=== PATIENT | female | born 1935 | race Caucasian/White ===

== ENCOUNTER 2020-05-16 12:25 | Inpatient (IN) | payer MEDICARE, OTHER ==
[~2020-05-16] VITALS: Ht 160 cm; Wt 47.7 kg
[2020-05-16 13:19] LABS: BASOPHILS % (AUTO) 0.6 % (0-1); EOSINOPHILS # (AUTO) 0.1 X10'3 (0-0.9); EOSINOPHILS % (AUTO) 1.6 % (0-6); HEMATOCRIT 36.6 % (35.0-45.0); HEMOGLOBIN 12.4 g/dl (12.0-16.0); LYMPHOCYTES # (AUTO) 0.9 X10'3 (1.1-4.8); LYMPHOCYTES % (AUTO) 20.4 % (21-51); MEAN CORPUSCULAR HEMOGLOBIN 29.4 PG (27.0-31.0); MEAN CORPUSCULAR HGB CONC 33.8 g/dL (33.0-36.5); MEAN PLATELET VOLUME 6.9 FL (7.4-10.4); MONOCYTES # (AUTO) 0.2 X10'3 (0-0.9); MONOCYTES % (AUTO) 4.6 % (2-12); NEUTROPHILS # (AUTO) 3.2 X10'3 (1.8-7.7); NEUTROPHILS % (AUTO) 72.8 % (42-75); PLATELET COUNT 116 X10'3 (140-440); RED BLOOD COUNT 4.21 X10'6 (4.20-5.60); RED CELL DISTRIBUTION WIDTH 13.5 % (11.5-14.5); WHITE BLOOD COUNT 4.4 X10'3 (4.5-11.0)
[2020-05-16] MEDS ORDERED: iohexol 300mg/ml 100ml inj. ONE (13:26)
[2020-05-16 13:35] LABS: ALANINE AMINOTRANSFERASE 24 U/L (12-78); ALBUMIN 4.3 G/DL (3.4-5.0); ALBUMIN/GLOBULIN RATIO 2.4 (1.1-1.5); ALKALINE PHOSPHATASE 58 IU/L (46-116); ANION GAP 8 (8-16); ASPARTATE AMINO TRANSFERASE 22 U/L (10-37); BILIRUBIN,TOTAL 0.7 MG/DL (0.1-1.0); BLOOD UREA NITROGEN 15 MG/DL (7-18); BUN/CREATININE RATIO 23.4 (6.6-38.0); CALCIUM 8.6 MG/DL (8.5-10.1); CHLORIDE 99 MMOL/L (99-107); CREATININE 0.64 MG/DL (0.40-0.90); GLUCOSE 99 MG/DL (70-104); POTASSIUM 3.6 MMOL/L (3.5-5.1); SODIUM 135 MMOL/L (135-145); TOTAL CARBON DIOXIDE 27.6 MMOL/L (24-32); TOTAL PROTEIN 6.1 G/DL (6.4-8.2); eGFR 88 ML/MIN
--- NOTE | 2020-05-16 14:01 | NUR ---
PATIENT REFUSED TO GO TO CT SCAN DESPITE MULTIPLE ATTEMPTS AT EXPLAINING THE PROCEEDURE AND RISKS OF NOT GOING TO CT SCAN
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
[2020-05-16] MEDS ORDERED: ondansetron/PF 4mg/2ml inj IV PRN (19:20)
[2020-05-16] MEDS ORDERED: magnesium hydroxide 30ml (MOM) UD suspension PO PRN (19:20)
[2020-05-16] MEDS ORDERED: acetaminophen 325mg tablet PO PRN (19:20)
[2020-05-16] MEDS ORDERED: mag hydrox/Alum hydrox/simeth 30ml oral suspension PO PRN (19:20)
[2020-05-16] MEDS: heparin, porcine 5000 units/ml vial SQ SCH (20:00)
[2020-05-16 21:20] VITALS: BP 111/52
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
[2020-05-16] MEDS: HYDROcodone/acetaminophen 5mg/325mg tablet PO PRN (23:33)
[2020-05-17] VITALS: BP 95/48
[2020-05-17] MEDS ORDERED: HYDROcodone/acetaminophen 5mg/325mg tablet PO ONE (02:15)
[2020-05-17 06:00] LABS: BASOPHILS % (AUTO) 1.2 % (0-1); EOSINOPHILS # (AUTO) 0.1 X10'3 (0-0.9); EOSINOPHILS % (AUTO) 2.9 % (0-6); HEMATOCRIT 29.3 % (35.0-45.0); LYMPHOCYTES # (AUTO) 0.9 X10'3 (1.1-4.8); LYMPHOCYTES % (AUTO) 22.5 % (21-51); MEAN CORPUSCULAR HEMOGLOBIN 29.8 PG (27.0-31.0); MEAN CORPUSCULAR HGB CONC 34.3 g/dL (33.0-36.5); MEAN CORPUSCULAR VOLUME 86.9 FL (78-98); MONOCYTES # (AUTO) 0.2 X10'3 (0-0.9); MONOCYTES % (AUTO) 5.6 % (2-12); NEUTROPHILS # (AUTO) 2.6 X10'3 (1.8-7.7); NEUTROPHILS % (AUTO) 67.8 % (42-75); PLATELET COUNT 89 X10'3 (140-440); RED BLOOD COUNT 3.37 X10'6 (4.20-5.60); RED CELL DISTRIBUTION WIDTH 13.4 % (11.5-14.5); WHITE BLOOD COUNT 3.8 X10'3 (4.5-11.0)
[2020-05-17 06:15] LABS: ALANINE AMINOTRANSFERASE 25 U/L (12-78); ALBUMIN 3.3 G/DL (3.4-5.0); ALBUMIN/GLOBULIN RATIO 2.1 (1.1-1.5); ALKALINE PHOSPHATASE 48 IU/L (46-116); ANION GAP 7 (8-16); ASPARTATE AMINO TRANSFERASE 30 U/L (10-37); BILIRUBIN,TOTAL 0.7 MG/DL (0.1-1.0); BLOOD UREA NITROGEN 15 MG/DL (7-18); CALCIUM 8.2 MG/DL (8.5-10.1); CHLORIDE 106 MMOL/L (99-107); CREATININE 0.75 MG/DL (0.40-0.90); GLUCOSE 83 MG/DL (70-104); POTASSIUM 3.8 MMOL/L (3.5-5.1); SODIUM 141 MMOL/L (135-145); TOTAL CARBON DIOXIDE 27.9 MMOL/L (24-32); TOTAL PROTEIN 4.9 G/DL (6.4-8.2); eGFR 74 ML/MIN
--- NOTE | 2020-05-17 06:15 | NUR ---
Problems reprioritized. Patient report given, questions answered & plan of care reviewed with ALICIA Kingsley.
[2020-05-17] MEDS: HYDROcodone/acetaminophen 5mg/325mg tablet PO PRN ×3 (06:18→21:05)
--- NOTE | 2020-05-17 06:51 | NUR ---
Patient in room [facility]. I have received report from CINDY VARGAS and had the opportunity to ask questions and assume patient care.
[2020-05-17 07:00] VITALS: BP 100/55
[2020-05-17] MEDS: heparin, porcine 5000 units/ml vial SQ SCH ×2 (07:11→20:00)
[2020-05-17 11:00] VITALS: BP 113/57
[2020-05-17] MEDS ORDERED: NO HOME MEDS (12:18)
--- NOTE | 2020-05-17 14:03 | NUR ---
Noted that pt with a low BMI for geriatric age however current documented wt isn't scaled. Pt seen at bedside reports unsure of UBW. Pt appears small in stature. Pt on a regular diet, pending documentation of PO intake. Pt endorses a good appetite and reports 100% PO intake of breakfast and lunch today and states she is getting full from meals at this time. Pt denies food allergies or difficulty chewing/swallowing. Pt provided with alternative regular menu to provide additional food options and RD contact information. Pt with no food preferences at this time. Will remain available. Addendum: 05/17/20 at [address] Amended: Links added.
--- NOTE | 2020-05-17 18:45 | NUR ---
Patient in room [facility]. I have received report from ALICIA Kingsley and had the opportunity to ask questions and assume patient care.
[2020-05-17 20:29] VITALS: BP 144/53
--- NOTE | 2020-05-17 23:34 | NUR ---
Patient refusing midnight vitals
--- NOTE | 2020-05-18 06:27 | NUR ---
Patient in room [facility]. I have received report from ALICIA Shah and had the opportunity to ask questions and assume patient care.
--- NOTE | 2020-05-18 06:30 | NUR ---
Problems reprioritized. Patient report given, questions answered & plan of care reviewed with Nhi VARGAS.
[2020-05-18 07:00] VITALS: BP 98/80
[2020-05-18 07:43] LABS: BASOPHILS % (AUTO) 0.7 % (0-1); EOSINOPHILS # (AUTO) 0.1 X10'3 (0-0.9); EOSINOPHILS % (AUTO) 3.3 % (0-6); HEMATOCRIT 29.7 % (35.0-45.0); HEMOGLOBIN 10.2 g/dl (12.0-16.0); LYMPHOCYTES # (AUTO) 0.9 X10'3 (1.1-4.8); LYMPHOCYTES % (AUTO) 27.2 % (21-51); MEAN CORPUSCULAR HEMOGLOBIN 29.9 PG (27.0-31.0); MEAN CORPUSCULAR HGB CONC 34.5 g/dL (33.0-36.5); MEAN CORPUSCULAR VOLUME 86.6 FL (78-98); MEAN PLATELET VOLUME 7.2 FL (7.4-10.4); MONOCYTES # (AUTO) 0.2 X10'3 (0-0.9); MONOCYTES % (AUTO) 7.2 % (2-12); NEUTROPHILS % (AUTO) 61.6 % (42-75); PLATELET COUNT 82 X10'3 (140-440); RED BLOOD COUNT 3.43 X10'6 (4.20-5.60); RED CELL DISTRIBUTION WIDTH 13.5 % (11.5-14.5); WHITE BLOOD COUNT 3.3 X10'3 (4.5-11.0)
[2020-05-18] MEDS: heparin, porcine 5000 units/ml vial SQ SCH ×2 (08:00→20:00)
[2020-05-18 08:02] LABS: ALANINE AMINOTRANSFERASE 28 U/L (12-78); ALBUMIN 3.4 G/DL (3.4-5.0); ALBUMIN/GLOBULIN RATIO 1.9 (1.1-1.5); ALKALINE PHOSPHATASE 49 IU/L (46-116); ANION GAP 8 (8-16); ASPARTATE AMINO TRANSFERASE 30 U/L (10-37); BILIRUBIN,TOTAL 0.5 MG/DL (0.1-1.0); BLOOD UREA NITROGEN 11 MG/DL (7-18); BUN/CREATININE RATIO 19.3 (6.6-38.0); CALCIUM 9.1 MG/DL (8.5-10.1); CHLORIDE 106 MMOL/L (99-107); CREATININE 0.57 MG/DL (0.40-0.90); GLUCOSE 92 MG/DL (70-104); SODIUM 140 MMOL/L (135-145); TOTAL CARBON DIOXIDE 26.2 MMOL/L (24-32); TOTAL PROTEIN 5.2 G/DL (6.4-8.2); eGFR > 90 ML/MIN
[2020-05-18 11:00] VITALS: BP 152/57
--- NOTE | 2020-05-18 18:49 | NUR ---
Problems reprioritized. Patient report given, questions answered & plan of care reviewed with ALICIA Ramon.
[2020-05-18 20:00] VITALS: BP 115/54
--- NOTE | 2020-05-19 02:57 | NUR ---
REPORT RECEIVED FROM HYUN, PLAN OF CARE REVIEWED. NO ACUTE DISTRESS AT THIS TIME
[2020-05-19 04:42] VITALS: BP 102/49
--- NOTE | 2020-05-19 06:24 | NUR ---
Patient in room [facility]. I have received report from ALICIA Ramon and had the opportunity to ask questions and assume patient care.
[2020-05-19 07:00] VITALS: BP 119/58
[2020-05-19 07:20] LABS: EOSINOPHILS # (AUTO) 0.1 X10'3 (0-0.9); HEMOGLOBIN 10.3 g/dl (12.0-16.0); LYMPHOCYTES % (AUTO) 26.7 % (21-51); MEAN CORPUSCULAR HGB CONC 34.3 g/dL (33.0-36.5); MEAN CORPUSCULAR VOLUME 87.4 FL (78-98); MEAN PLATELET VOLUME 7.4 FL (7.4-10.4); MONOCYTES # (AUTO) 0.3 X10'3 (0-0.9); MONOCYTES % (AUTO) 7.1 % (2-12); NEUTROPHILS # (AUTO) 2.3 X10'3 (1.8-7.7); NEUTROPHILS % (AUTO) 62.2 % (42-75); PLATELET COUNT 84 X10'3 (140-440); RED BLOOD COUNT 3.43 X10'6 (4.20-5.60); RED CELL DISTRIBUTION WIDTH 13.8 % (11.5-14.5); WHITE BLOOD COUNT 3.6 X10'3 (4.5-11.0)
[2020-05-19 07:41] LABS: ALANINE AMINOTRANSFERASE 26 U/L (12-78); ALBUMIN 3.4 G/DL (3.4-5.0); ALBUMIN/GLOBULIN RATIO 1.7 (1.1-1.5); ALKALINE PHOSPHATASE 52 IU/L (46-116); ANION GAP 7 (8-16); ASPARTATE AMINO TRANSFERASE 24 U/L (10-37); BILIRUBIN,TOTAL 0.5 MG/DL (0.1-1.0); BLOOD UREA NITROGEN 13 MG/DL (7-18); BUN/CREATININE RATIO 22.4 (6.6-38.0); CALCIUM 8.2 MG/DL (8.5-10.1); CHLORIDE 107 MMOL/L (99-107); CREATININE 0.58 MG/DL (0.40-0.90); GLUCOSE 90 MG/DL (70-104); SODIUM 140 MMOL/L (135-145); TOTAL CARBON DIOXIDE 26.1 MMOL/L (24-32); TOTAL PROTEIN 5.4 G/DL (6.4-8.2); eGFR > 90 ML/MIN
[2020-05-19] MEDS: heparin, porcine 5000 units/ml vial SQ SCH ×2 (08:00→20:00)
[2020-05-19 11:00] VITALS: BP 128/55
--- NOTE | 2020-05-19 18:27 | NUR ---
Problems reprioritized. Patient report given, questions answered & plan of care reviewed with ALICIA Powers.
--- NOTE | 2020-05-19 18:32 | NUR ---
Patient in room [facility]. I have received report from RUBA VARGAS and had the opportunity to ask questions and assume patient care. Addendum: 05/19/20 at 1833 by Priya Helms RN Amended: Links added.
--- NOTE | 2020-05-19 19:35 | NUR ---
warm blanket given positioned to comfort.
[2020-05-19 19:45] VITALS: BP 131/53
--- NOTE | 2020-05-19 22:26 | NUR ---
resting appears comfortable at this time.
--- NOTE | 2020-05-19 22:55 | NUR ---
refused her second set of vitals.
--- NOTE | 2020-05-20 00:05 | NUR ---
refused vitals. Addendum: 05/20/20 at 0203 by Priya Helms RN Amended: Links added.
--- NOTE | 2020-05-20 00:36 | NUR ---
resting without changes.
--- NOTE | 2020-05-20 02:30 | NUR ---
resting no changes.
--- NOTE | 2020-05-20 06:16 | NUR ---
Problems reprioritized. Patient report given, questions answered & plan of care reviewed with Tracey Garcia. Addendum: 05/20/20 at 0617 by Priya Helms RN Amended: Links added.
[2020-05-20 06:28] LABS: EOSINOPHILS # (AUTO) 0.1 X10'3 (0-0.9); EOSINOPHILS % (AUTO) 4.1 % (0-6); HEMATOCRIT 29.8 % (35.0-45.0); HEMOGLOBIN 10.5 g/dl (12.0-16.0); LYMPHOCYTES # (AUTO) 0.8 X10'3 (1.1-4.8); LYMPHOCYTES % (AUTO) 23.3 % (21-51); MEAN CORPUSCULAR HEMOGLOBIN 30.4 PG (27.0-31.0); MEAN CORPUSCULAR HGB CONC 35.2 g/dL (33.0-36.5); MEAN CORPUSCULAR VOLUME 86.3 FL (78-98); MEAN PLATELET VOLUME 7.6 FL (7.4-10.4); MONOCYTES # (AUTO) 0.2 X10'3 (0-0.9); MONOCYTES % (AUTO) 6.9 % (2-12); NEUTROPHILS # (AUTO) 2.3 X10'3 (1.8-7.7); NEUTROPHILS % (AUTO) 64.7 % (42-75); PLATELET COUNT 95 X10'3 (140-440); RED BLOOD COUNT 3.45 X10'6 (4.20-5.60); WHITE BLOOD COUNT 3.5 X10'3 (4.5-11.0)
[2020-05-20 06:32] LABS: ALANINE AMINOTRANSFERASE 26 U/L (12-78); ALBUMIN 3.4 G/DL (3.4-5.0); ALBUMIN/GLOBULIN RATIO 1.7 (1.1-1.5); ALKALINE PHOSPHATASE 49 IU/L (46-116); ASPARTATE AMINO TRANSFERASE 20 U/L (10-37); BILIRUBIN,TOTAL 0.5 MG/DL (0.1-1.0); BLOOD UREA NITROGEN 18 MG/DL (7-18); BUN/CREATININE RATIO 26.9 (6.6-38.0); CALCIUM 8.6 MG/DL (8.5-10.1); CREATININE 0.67 MG/DL (0.40-0.90); GLUCOSE 101 MG/DL (70-104); TOTAL PROTEIN 5.4 G/DL (6.4-8.2); eGFR 84 ML/MIN
[2020-05-20 06:38] LABS: ANION GAP 6 (8-16); CHLORIDE 104 MMOL/L (99-107); POTASSIUM 4.1 MMOL/L (3.5-5.1); SODIUM 136 MMOL/L (135-145)
--- NOTE | 2020-05-20 07:28 | NUR ---
Pt. refused VS to be taken. Educated on importance of needing to monitor vitals signs but pt. still refused.
[2020-05-20] MEDS: heparin, porcine 5000 units/ml vial SQ SCH ×2 (08:00→20:00)
--- NOTE | 2020-05-20 09:51 | NUR ---
notified that pt. is refusing vitals and that she wants her IV taken out. He is ok with no IV. Also notified of low platelets and that heparin had been held this AM. ok with this.
[2020-05-20 11:00] VITALS: BP 115/67
--- NOTE | 2020-05-20 18:17 | NUR ---
Gave report to Priya VARGAS.
--- NOTE | 2020-05-20 18:28 | NUR ---
Patient in room [facility]. I have received report from PIO VARGAS and had the opportunity to ask questions and assume patient care. Addendum: 05/20/20 at 1828 by Priya Helms RN Amended: Links added.
[2020-05-20 19:00] VITALS: BP 127/66
--- NOTE | 2020-05-20 19:25 | NUR ---
pt alert and orientated with expressive asphasia. pt has hARD TIME USING THE RIGHT WORDS AT FIRST THEN finally gets it and uses it. she is able to answer questions appropriately and says she does not want or need pain medication and refused heparin dvt dose tonight.
[2020-05-20 20:00] VITALS: BP 127/66
--- NOTE | 2020-05-20 22:05 | NUR ---
pt resting without changes or s&s of distress.
[2020-05-21] VITALS: BP 139/94
--- NOTE | 2020-05-21 00:53 | NUR ---
no changes noted appears comfortable.
--- NOTE | 2020-05-21 03:13 | NUR ---
awake stated she was cold blanket given to her. denies need for pain medication.
--- NOTE | 2020-05-21 04:25 | NUR ---
resting no changes.
--- NOTE | 2020-05-21 06:08 | NUR ---
Problems reprioritized. Patient report given, questions answered & plan of care reviewed with PIO VARGAS. Addendum: 05/21/20 at 0609 by Priya Helms RN Amended: Links added.
[2020-05-21 08:26] VITALS: BP 107/52
[2020-05-21 09:04] LABS: EOSINOPHILS # (AUTO) 0.1 X10'3 (0-0.9); EOSINOPHILS % (AUTO) 3.8 % (0-6); HEMATOCRIT 34.2 % (35.0-45.0); HEMOGLOBIN 11.5 g/dl (12.0-16.0); LYMPHOCYTES # (AUTO) 0.8 X10'3 (1.1-4.8); LYMPHOCYTES % (AUTO) 21.8 % (21-51); MEAN CORPUSCULAR HEMOGLOBIN 29.6 PG (27.0-31.0); MEAN CORPUSCULAR HGB CONC 33.7 g/dL (33.0-36.5); MEAN CORPUSCULAR VOLUME 87.9 FL (78-98); MEAN PLATELET VOLUME 7.3 FL (7.4-10.4); MONOCYTES # (AUTO) 0.2 X10'3 (0-0.9); MONOCYTES % (AUTO) 6.2 % (2-12); NEUTROPHILS # (AUTO) 2.4 X10'3 (1.8-7.7); NEUTROPHILS % (AUTO) 67.2 % (42-75); PLATELET COUNT 136 X10'3 (140-440); RED BLOOD COUNT 3.89 X10'6 (4.20-5.60); RED CELL DISTRIBUTION WIDTH 14.1 % (11.5-14.5); WHITE BLOOD COUNT 3.5 X10'3 (4.5-11.0)
[2020-05-21 09:28] LABS: ALANINE AMINOTRANSFERASE 29 U/L (12-78); ALBUMIN 3.6 G/DL (3.4-5.0); ALBUMIN/GLOBULIN RATIO 1.6 (1.1-1.5); ALKALINE PHOSPHATASE 61 IU/L (46-116); ANION GAP 7 (8-16); ASPARTATE AMINO TRANSFERASE 18 U/L (10-37); BILIRUBIN,TOTAL 0.7 MG/DL (0.1-1.0); BLOOD UREA NITROGEN 14 MG/DL (7-18); BUN/CREATININE RATIO 23.7 (6.6-38.0); CALCIUM 8.4 MG/DL (8.5-10.1); CHLORIDE 101 MMOL/L (99-107); CREATININE 0.59 MG/DL (0.40-0.90); GLUCOSE 130 MG/DL (70-104); SODIUM 136 MMOL/L (135-145); TOTAL CARBON DIOXIDE 27.6 MMOL/L (24-32); TOTAL PROTEIN 5.9 G/DL (6.4-8.2); eGFR > 90 ML/MIN
[2020-05-21 11:00] VITALS: BP 118/49
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
--- NOTE | 2020-05-21 18:33 | NUR ---
Gave report to Shea VARGAS.
--- NOTE | 2020-05-21 18:45 | NUR ---
I have received report from Tracey VARGAS and had the opportunity to ask questions and assume patient care.
[2020-05-21 19:00] VITALS: BP 116/60
[2020-05-21 20:00] VITALS: BP 116/60
[2020-05-22] VITALS: BP 111/56
--- NOTE | 2020-05-22 06:15 | NUR ---
Problems reprioritized. Patient report given, questions answered & plan of care reviewed with Talya VARGAS.
--- NOTE | 2020-05-22 06:43 | NUR ---
Patient in room [facility]. I have received report from Shea and had the opportunity to ask questions and assume patient care.
[2020-05-22 07:00] VITALS: BP 118/60
--- NOTE | 2020-05-22 18:34 | NUR ---
I have received report from Talya VARGAS and had the opportunity to ask questions and assume patient care.
--- NOTE | 2020-05-22 20:50 | NUR ---
Patient in room [facility]. I have received report from ALICIA Valdivia and had the opportunity to ask questions and assume patient care.
[2020-05-22 20:54] VITALS: BP 112/48
--- NOTE | 2020-05-22 22:02 | NUR ---
Problems reprioritized. Patient report given, questions answered & plan of care reviewed with Coretta VARGAS.
[2020-05-23 00:04] VITALS: BP 109/55
--- NOTE | 2020-05-23 06:23 | NUR ---
Problems reprioritized. Patient report given, questions answered & plan of care reviewed with ALICIA Alcala.
[2020-05-23 07:00] VITALS: BP 115/66
--- NOTE | 2020-05-23 15:58 | NUR ---
I have received report from Andreina VARGAS and had the opportunity to ask questions and assume patient care.
[2020-05-23 19:42] VITALS: BP 117/56
[2020-05-24] VITALS: BP 110/60
--- NOTE | 2020-05-24 06:31 | NUR ---
Problems reprioritized. Patient report given, questions answered & plan of care reviewed with Esther VARGAS.
--- NOTE | 2020-05-24 06:33 | NUR ---
Patient in room [facility]. I have received report from Shea VARGAS and had the opportunity to ask questions and assume patient care.
[2020-05-24 08:00] VITALS: BP 128/60
[2020-05-24 11:00] VITALS: BP 119/50
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
--- NOTE | 2020-05-24 15:36 | NUR ---
PAGER ID: [phone] MESSAGE: re: KeraB, Collette Padilla Pt's brother, Royce Yap ([phone]) would like to speak with you regarding pt's status (Pratibha in [employer] is also aware).
[2020-05-24 18:00] VITALS: BP 130/66
--- NOTE | 2020-05-24 18:49 | NUR ---
Patient in room [facility]. I have received report from ALICIA Santana and had the opportunity to ask questions and assume patient care.
--- NOTE | 2020-05-24 18:50 | NUR ---
Problems reprioritized. Patient report given, questions answered & plan of care reviewed with Perry VARGAS.
[2020-05-24] MEDS ORDERED: potassium Cl 40MEQ/1/2NS 520ml 520 ML IV PRN (18:55)
[2020-05-24] MEDS ORDERED: magnesium Cl slow-release 64mg tablet PO PRN (18:55)
[2020-05-24] MEDS ORDERED: magnesium 4gm in 100ml NS 100 ML IV PRN (18:55)
[2020-05-24] MEDS ORDERED: potassium Cl 20 mEq SR tablet PO PRN ×2 (18:55)
[2020-05-24] MEDS: K and/or MAG REPLACEMENT MC SCH (20:00)
[2020-05-25] VITALS: BP 108/64
--- NOTE | 2020-05-25 06:23 | NUR ---
Problems reprioritized. Patient report given, questions answered & plan of care reviewed with ALICIA Zavala.
[2020-05-25 07:00] VITALS: BP 117/58
[2020-05-25 07:07] LABS: BASOPHILS % (AUTO) 1.1 % (0-1); EOSINOPHILS # (AUTO) 0.1 X10'3 (0-0.9); EOSINOPHILS % (AUTO) 3.2 % (0-6); HEMATOCRIT 31.3 % (35.0-45.0); HEMOGLOBIN 10.7 g/dl (12.0-16.0); LYMPHOCYTES # (AUTO) 0.9 X10'3 (1.1-4.8); MEAN CORPUSCULAR HEMOGLOBIN 29.6 PG (27.0-31.0); MEAN CORPUSCULAR HGB CONC 34.3 g/dL (33.0-36.5); MEAN CORPUSCULAR VOLUME 86.4 FL (78-98); MEAN PLATELET VOLUME 6.8 FL (7.4-10.4); MONOCYTES # (AUTO) 0.3 X10'3 (0-0.9); MONOCYTES % (AUTO) 8.4 % (2-12); NEUTROPHILS # (AUTO) 2.1 X10'3 (1.8-7.7); NEUTROPHILS % (AUTO) 61.3 % (42-75); PLATELET COUNT 176 X10'3 (140-440); RED BLOOD COUNT 3.63 X10'6 (4.20-5.60); RED CELL DISTRIBUTION WIDTH 13.8 % (11.5-14.5); WHITE BLOOD COUNT 3.4 X10'3 (4.5-11.0)
[2020-05-25 07:17] LABS: ALANINE AMINOTRANSFERASE 24 U/L (12-78); ALBUMIN 3.2 G/DL (3.4-5.0); ALBUMIN/GLOBULIN RATIO 1.5 (1.1-1.5); ALKALINE PHOSPHATASE 67 IU/L (46-116); ANION GAP 6 (8-16); ASPARTATE AMINO TRANSFERASE 10 U/L (10-37); BILIRUBIN,TOTAL 0.5 MG/DL (0.1-1.0); BLOOD UREA NITROGEN 18 MG/DL (7-18); BUN/CREATININE RATIO 32.7 (6.6-38.0); CALCIUM 8.4 MG/DL (8.5-10.1); CHLORIDE 105 MMOL/L (99-107); CREATININE 0.55 MG/DL (0.40-0.90); GLUCOSE 96 MG/DL (70-104); MAGNESIUM 2.2 MG/DL (1.5-2.4); PHOSPHORUS 3.7 MG/DL (2.3-4.5); POTASSIUM 4.3 MMOL/L (3.5-5.1); SODIUM 138 MMOL/L (135-145); TOTAL CARBON DIOXIDE 27.1 MMOL/L (24-32); TOTAL PROTEIN 5.4 G/DL (6.4-8.2); eGFR > 90 ML/MIN
[2020-05-25] MEDS: K and/or MAG REPLACEMENT MC SCH ×2 (08:00→20:00)
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
--- NOTE | 2020-05-25 09:24 | NUR ---
PAGER ID: [phone] MESSAGE: Sally [phone] nabil Padilla- ok to straight cath for UA? Cannot get a clean sample via void.
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
[2020-05-25 11:00] VITALS: BP 114/59
[2020-05-25] MEDS: ciprofloxacin 0.3% 2.5ml ophthalmic solution RIGHTEYE SCH ×4 (12:00→19:57)
[2020-05-25 12:08] LABS: CLARITY,URINE CLEAR (Clear); COLOR,URINE YELLOW (Yellow); GLUCOSE, URINE NEGATIVE (Neg); KETONES,URINE NEGATIVE (Neg); LEUKOCYTE ESTERASE ,URINE TRACE (Neg); NITRITES, URINE NEGATIVE (Neg); OCCULT BLOOD,URINE NEGATIVE (Neg); PROTEIN,URINE NEGATIVE (Neg); UROBILINOGEN,URINE 0.2 E.U/dL (0.2-1.0)
[2020-05-25 12:14] LABS: UA COLLECTION TYPE NON-SPECIFIED
[2020-05-25 12:16] LABS: RENAL CELLS, URINE FEW /HPF; SQUAMOUS EPITHELIAL CELL,UR FEW /LPF (FEW)
[2020-05-25 12:19] LABS: BACTERIA,URINE NONE SEEN /HPF (Neg); RBC,URINE 0-2 /HPF (0-2); WBC CLUMPS,URINE FEW /HPF (NEGATIVE)
[2020-05-25 12:50] LABS: CHOL/HDL RATIO 1.8 (0.00-4.99); CHOLESTEROL 144 MG/DL (0-200); HDL CHOLESTEROL 79 MG/DL (35-60); LDL CHOLESTEROL 59 MG/DL (50-100); TRIGLYCERIDES 46 MG/DL (20-135)
--- NOTE | 2020-05-25 12:53 | NUR ---
PAGER ID: [phone] MESSAGE: Sally [phone]- Mrs Padilla is adamantly refusing the MRI. States she is claustrophobic yet will not take anti anxiety for it. Insists she will get it done outpatient. Please advise
--- NOTE | 2020-05-25 13:55 | NUR ---
pt refused mri and also refused eye drops. She sat up in the bed and said, "I don't want it!". Addendum: 05/25/20 at 1356 by Shea Chan RN pt states she wants to go home
[2020-05-25 18:00] VITALS: BP 135/95
[2020-05-25] MEDS ORDERED: CefTRIAXone/D5W-Rocephin 1gm 50 ML IV SCH (18:25)
--- NOTE | 2020-05-25 18:46 | NUR ---
PAGER ID: [phone] MESSAGE: Sally [phone] re Collette Padilla- Pt does not have an IV, any chance we could switch the antibiotic to something PO?
[2020-05-25] MEDS: cefpodoxime proxetil 100mg tablet PO SCH (19:55)
[2020-05-25] MEDS: heparin, porcine 5000 units/ml vial SQ SCH (20:00)
[2020-05-26] VITALS: BP 110/51
[2020-05-26] MEDS: ciprofloxacin 0.3% 2.5ml ophthalmic solution RIGHTEYE SCH ×6 (04:00→19:18)
--- NOTE | 2020-05-26 06:23 | NUR ---
Problems reprioritized. Patient report given, questions answered & plan of care reviewed with ALICIA Estrada.
--- NOTE | 2020-05-26 06:29 | NUR ---
Patient in room [facility]. I have received report from ALICIA Amador and had the opportunity to ask questions and assume patient care.
[2020-05-26] MEDS: K and/or MAG REPLACEMENT MC SCH ×2 (07:05→20:00)
[2020-05-26 07:19] VITALS: BP 111/59
[2020-05-26 07:47] LABS: BASOPHILS % (AUTO) 0.8 % (0-1); EOSINOPHILS # (AUTO) 0.1 X10'3 (0-0.9); HEMATOCRIT 33.5 % (35.0-45.0); HEMOGLOBIN 11.6 g/dl (12.0-16.0); LYMPHOCYTES # (AUTO) 1.1 X10'3 (1.1-4.8); MEAN CORPUSCULAR HEMOGLOBIN 30.3 PG (27.0-31.0); MEAN CORPUSCULAR HGB CONC 34.7 g/dL (33.0-36.5); MEAN CORPUSCULAR VOLUME 87.2 FL (78-98); MEAN PLATELET VOLUME 6.8 FL (7.4-10.4); MONOCYTES # (AUTO) 0.3 X10'3 (0-0.9); MONOCYTES % (AUTO) 7.5 % (2-12); NEUTROPHILS # (AUTO) 2.5 X10'3 (1.8-7.7); NEUTROPHILS % (AUTO) 60.7 % (42-75); PLATELET COUNT 200 X10'3 (140-440); RED BLOOD COUNT 3.84 X10'6 (4.20-5.60); RED CELL DISTRIBUTION WIDTH 13.7 % (11.5-14.5); WHITE BLOOD COUNT 4.1 X10'3 (4.5-11.0)
[2020-05-26] MEDS: heparin, porcine 5000 units/ml vial SQ SCH ×2 (08:00→20:00)
[2020-05-26 08:12] LABS: ALANINE AMINOTRANSFERASE 25 U/L (12-78); ALBUMIN 3.4 G/DL (3.4-5.0); ALBUMIN/GLOBULIN RATIO 1.4 (1.1-1.5); ALKALINE PHOSPHATASE 76 IU/L (46-116); ANION GAP 8 (8-16); ASPARTATE AMINO TRANSFERASE 11 U/L (10-37); BILIRUBIN,TOTAL 0.6 MG/DL (0.1-1.0); BLOOD UREA NITROGEN 19 MG/DL (7-18); BUN/CREATININE RATIO 32.8 (6.6-38.0); CALCIUM 8.5 MG/DL (8.5-10.1); CHLORIDE 103 MMOL/L (99-107); CREATININE 0.58 MG/DL (0.40-0.90); GLUCOSE 97 MG/DL (70-104); MAGNESIUM 2.2 MG/DL (1.5-2.4); SODIUM 138 MMOL/L (135-145); TOTAL PROTEIN 5.8 G/DL (6.4-8.2); eGFR > 90 ML/MIN
[2020-05-26 08:31] LABS: HEMOGLOBIN A1C 4.9 % (4.5-6.2)
[2020-05-26] MEDS: aspirin 81mg tablet.DR PO SCH (09:09)
[2020-05-26] MEDS: cefpodoxime proxetil 100mg tablet PO SCH ×2 (09:09→16:36)
[2020-05-26 11:00] VITALS: BP 128/67
--- NOTE | 2020-05-26 15:49 | NUR ---
Patient has refused Echo and Carotid scan today.
--- NOTE | 2020-05-26 18:26 | NUR ---
Problems reprioritized. Patient report given, questions answered & plan of care reviewed with ALICIA Amador.
--- NOTE | 2020-05-26 18:45 | NUR ---
I have received report from ALICIA Estrada and had the opportunity to ask questions and assume patient care.
[2020-05-26 19:00] VITALS: BP 138/68
[2020-05-27] MEDS: ciprofloxacin 0.3% 2.5ml ophthalmic solution RIGHTEYE SCH ×7 (04:00→23:56)
[2020-05-27 05:39] LABS: BASOPHILS % (AUTO) 1.1 % (0-1); EOSINOPHILS # (AUTO) 0.1 X10'3 (0-0.9); EOSINOPHILS % (AUTO) 3.6 % (0-6); HEMATOCRIT 31.4 % (35.0-45.0); HEMOGLOBIN 10.7 g/dl (12.0-16.0); LYMPHOCYTES # (AUTO) 0.7 X10'3 (1.1-4.8); LYMPHOCYTES % (AUTO) 22.6 % (21-51); MEAN CORPUSCULAR HEMOGLOBIN 29.6 PG (27.0-31.0); MEAN CORPUSCULAR HGB CONC 34.1 g/dL (33.0-36.5); MEAN CORPUSCULAR VOLUME 86.8 FL (78-98); MEAN PLATELET VOLUME 6.6 FL (7.4-10.4); MONOCYTES # (AUTO) 0.3 X10'3 (0-0.9); MONOCYTES % (AUTO) 8.9 % (2-12); NEUTROPHILS # (AUTO) 2.1 X10'3 (1.8-7.7); NEUTROPHILS % (AUTO) 63.8 % (42-75); PLATELET COUNT 183 X10'3 (140-440); RED BLOOD COUNT 3.62 X10'6 (4.20-5.60); RED CELL DISTRIBUTION WIDTH 13.8 % (11.5-14.5); WHITE BLOOD COUNT 3.3 X10'3 (4.5-11.0)
[2020-05-27 05:56] LABS: ALANINE AMINOTRANSFERASE 22 U/L (12-78); ALBUMIN 3.2 G/DL (3.4-5.0); ALBUMIN/GLOBULIN RATIO 1.5 (1.1-1.5); ALKALINE PHOSPHATASE 74 IU/L (46-116); ANION GAP 6 (8-16); ASPARTATE AMINO TRANSFERASE 12 U/L (10-37); BILIRUBIN,TOTAL 0.5 MG/DL (0.1-1.0); BLOOD UREA NITROGEN 21 MG/DL (7-18); BUN/CREATININE RATIO 40.4 (6.6-38.0); CALCIUM 8.4 MG/DL (8.5-10.1); CHLORIDE 104 MMOL/L (99-107); CREATININE 0.52 MG/DL (0.40-0.90); GLUCOSE 101 MG/DL (70-104); MAGNESIUM 2.2 MG/DL (1.5-2.4); PHOSPHORUS 3.9 MG/DL (2.3-4.5); POTASSIUM 4.1 MMOL/L (3.5-5.1); SODIUM 138 MMOL/L (135-145); TOTAL CARBON DIOXIDE 28.4 MMOL/L (24-32); TOTAL PROTEIN 5.3 G/DL (6.4-8.2); eGFR > 90 ML/MIN
[2020-05-27 07:00] VITALS: BP 139/60
[2020-05-27] MEDS: heparin, porcine 5000 units/ml vial SQ SCH ×2 (07:54→20:00)
[2020-05-27] MEDS: K and/or MAG REPLACEMENT MC SCH ×2 (07:54→20:00)
[2020-05-27] MEDS: cefpodoxime proxetil 100mg tablet PO SCH ×2 (09:01→16:56)
[2020-05-27] MEDS: aspirin 81mg tablet.DR PO SCH (09:01)
[2020-05-27 11:00] VITALS: BP 107/54
[2020-05-27 18:30] VITALS: BP 119/62
--- NOTE | 2020-05-27 18:32 | NUR ---
Problems reprioritized. Patient report given, questions answered & plan of care reviewed with ALICIA Verdugo.
[2020-05-28] VITALS: BP 110/56
[2020-05-28] MEDS: ciprofloxacin 0.3% 2.5ml ophthalmic solution RIGHTEYE SCH ×5 (03:59→20:35)
--- NOTE | 2020-05-28 06:15 | NUR ---
Patient in room [facility]. I have received report from ALICIA Verdugo and had the opportunity to ask questions and assume patient care.
[2020-05-28 06:30] VITALS: BP 113/58
[2020-05-28 06:50] LABS: BASOPHILS % (AUTO) 1.2 % (0-1); EOSINOPHILS # (AUTO) 0.1 X10'3 (0-0.9); EOSINOPHILS % (AUTO) 3.3 % (0-6); HEMATOCRIT 31.4 % (35.0-45.0); HEMOGLOBIN 10.7 g/dl (12.0-16.0); LYMPHOCYTES # (AUTO) 0.5 X10'3 (1.1-4.8); LYMPHOCYTES % (AUTO) 17.7 % (21-51); MEAN CORPUSCULAR HEMOGLOBIN 29.7 PG (27.0-31.0); MEAN CORPUSCULAR HGB CONC 34.2 g/dL (33.0-36.5); MEAN CORPUSCULAR VOLUME 86.8 FL (78-98); MEAN PLATELET VOLUME 6.8 FL (7.4-10.4); MONOCYTES # (AUTO) 0.3 X10'3 (0-0.9); MONOCYTES % (AUTO) 9.4 % (2-12); NEUTROPHILS # (AUTO) 1.9 X10'3 (1.8-7.7); NEUTROPHILS % (AUTO) 68.4 % (42-75); PLATELET COUNT 185 X10'3 (140-440); RED BLOOD COUNT 3.62 X10'6 (4.20-5.60); RED CELL DISTRIBUTION WIDTH 13.8 % (11.5-14.5); WHITE BLOOD COUNT 2.8 X10'3 (4.5-11.0)
[2020-05-28 06:54] LABS: ALANINE AMINOTRANSFERASE 21 U/L (12-78); ALBUMIN 3.3 G/DL (3.4-5.0); ALBUMIN/GLOBULIN RATIO 1.7 (1.1-1.5); ALKALINE PHOSPHATASE 74 IU/L (46-116); ANION GAP 6 (8-16); ASPARTATE AMINO TRANSFERASE 18 U/L (10-37); BILIRUBIN,TOTAL 0.6 MG/DL (0.1-1.0); BLOOD UREA NITROGEN 13 MG/DL (7-18); CALCIUM 8.8 MG/DL (8.5-10.1); CHLORIDE 103 MMOL/L (99-107); CREATININE 0.52 MG/DL (0.40-0.90); GLUCOSE 91 MG/DL (70-104); MAGNESIUM 2.2 MG/DL (1.5-2.4); PHOSPHORUS 3.7 MG/DL (2.3-4.5); SODIUM 137 MMOL/L (135-145); TOTAL CARBON DIOXIDE 27.7 MMOL/L (24-32); TOTAL PROTEIN 5.3 G/DL (6.4-8.2); eGFR > 90 ML/MIN
[2020-05-28] MEDS: K and/or MAG REPLACEMENT MC SCH ×2 (06:59→20:00)
[2020-05-28 07:49] LABS: TOTAL CELLS COUNTED 100
[2020-05-28 07:51] LABS: BURR CELLS FEW; PLATELET ESTIMATE NORMAL
[2020-05-28] MEDS: heparin, porcine 5000 units/ml vial SQ SCH ×2 (08:00→20:00)
[2020-05-28] MEDS: cefpodoxime proxetil 100mg tablet PO SCH ×2 (08:23→17:28)
[2020-05-28] MEDS: aspirin 81mg tablet.DR PO SCH (08:23)
[2020-05-28 11:00] VITALS: BP 108/52
[2020-05-28] MEDS ORDERED: benzocaine/menthol oral lozeng 1 EACH BOX MM PRN (11:50)
--- NOTE | 2020-05-28 12:16 | NUR ---
Reassessment: Pt PO 75-100% avg regular diet meeting needs. LBM 05/26. No nutrition concerns at this time. Will continue to monitor. Rec: 1. continue regular diet 2. routine bowel care 3. scaled wt this admit Addendum: 05/28/20 at [address] Amended: Links added.
[2020-05-28] MEDS ORDERED: acetaminophen 325mg tablet PO PRN (14:25)
--- NOTE | 2020-05-28 18:25 | NUR ---
Problems reprioritized. Patient report given, questions answered & plan of care reviewed with ALICIA Cordero.
[2020-05-28 18:30] VITALS: BP 141/61
[2020-05-29] VITALS: BP 134/60
[2020-05-29] MEDS: ciprofloxacin 0.3% 2.5ml ophthalmic solution RIGHTEYE SCH ×6 (03:30→20:00)
[2020-05-29 06:16] LABS: BASOPHILS % (AUTO) 1.1 % (0-1); EOSINOPHILS # (AUTO) 0.1 X10'3 (0-0.9); EOSINOPHILS % (AUTO) 3.2 % (0-6); HEMATOCRIT 31.4 % (35.0-45.0); HEMOGLOBIN 10.7 g/dl (12.0-16.0); LYMPHOCYTES # (AUTO) 0.6 X10'3 (1.1-4.8); LYMPHOCYTES % (AUTO) 30.5 % (21-51); MEAN CORPUSCULAR HEMOGLOBIN 29.6 PG (27.0-31.0); MEAN PLATELET VOLUME 6.8 FL (7.4-10.4); MONOCYTES # (AUTO) 0.3 X10'3 (0-0.9); MONOCYTES % (AUTO) 13.5 % (2-12); NEUTROPHILS % (AUTO) 51.7 % (42-75); PLATELET COUNT 161 X10'3 (140-440); RED BLOOD COUNT 3.61 X10'6 (4.20-5.60); RED CELL DISTRIBUTION WIDTH 13.8 % (11.5-14.5)
[2020-05-29 06:27] LABS: ALANINE AMINOTRANSFERASE 20 U/L (12-78); ALBUMIN 3.1 G/DL (3.4-5.0); ALBUMIN/GLOBULIN RATIO 1.4 (1.1-1.5); ALKALINE PHOSPHATASE 77 IU/L (46-116); ANION GAP 4 (8-16); ASPARTATE AMINO TRANSFERASE 16 U/L (10-37); BILIRUBIN,TOTAL 0.5 MG/DL (0.1-1.0); BLOOD UREA NITROGEN 14 MG/DL (7-18); CALCIUM 8.3 MG/DL (8.5-10.1); CHLORIDE 104 MMOL/L (99-107); CREATININE 0.61 MG/DL (0.40-0.90); GLUCOSE 87 MG/DL (70-104); MAGNESIUM 2.1 MG/DL (1.5-2.4); PHOSPHORUS 3.9 MG/DL (2.3-4.5); SODIUM 135 MMOL/L (135-145); TOTAL CARBON DIOXIDE 26.7 MMOL/L (24-32); TOTAL PROTEIN 5.3 G/DL (6.4-8.2); eGFR > 90 ML/MIN
--- NOTE | 2020-05-29 06:30 | NUR ---
Patient in room [facility]. I have received report from Gil VARGAS and had the opportunity to ask questions and assume patient care.
[2020-05-29 07:00] VITALS: BP 120/55
--- NOTE | 2020-05-29 07:02 | NUR ---
Problems reprioritized. Patient report given, questions answered & plan of care reviewed with KATERINA. Addendum: 05/29/20 at 0703 by Ranjith Galloway RN Amended: Links added.
[2020-05-29] MEDS: K and/or MAG REPLACEMENT MC SCH ×2 (08:00→20:00)
[2020-05-29] MEDS: heparin, porcine 5000 units/ml vial SQ SCH ×2 (08:00→20:00)
[2020-05-29 08:46] LABS: PLATELET ESTIMATE NORMAL; TOTAL CELLS COUNTED 100
[2020-05-29] MEDS: cefpodoxime proxetil 100mg tablet PO SCH ×2 (09:10→17:29)
[2020-05-29] MEDS: aspirin 81mg tablet.DR PO SCH (09:10)
--- NOTE | 2020-05-29 09:11 | NUR ---
Patient refused heparin SQ injection, she yelled at me says "No!" despite explaining to her that she need it to prevent blood clot formation
[2020-05-29 11:00] VITALS: BP 110/51
--- NOTE | 2020-05-29 18:24 | NUR ---
Problems reprioritized. Patient report given, questions answered & plan of care reviewed with Pat RN.
[2020-05-29 19:30] VITALS: BP 113/51
--- NOTE | 2020-05-29 19:30 | NUR ---
verbalizes concerns of her discharge plans Addendum: 05/29/20 at 2236 by Collette Higuera RN Amended: Links added.
[2020-05-30] VITALS: BP 112/52
[2020-05-30 01:05] VITALS: BP 112/52
[2020-05-30] MEDS: ciprofloxacin 0.3% 2.5ml ophthalmic solution RIGHTEYE SCH ×6 (04:00→20:36)
--- NOTE | 2020-05-30 06:36 | NUR ---
Patient in room [facility]. I have received report from ALICIA KENDALL and had the opportunity to ask questions and assume patient care. Addendum: 05/30/20 at 0642 by Marianne Best RN REC'D REPORT FROM ALICIA STARR NOT ALICIA KENDALL
[2020-05-30 07:00] VITALS: BP 92/59
[2020-05-30] MEDS: K and/or MAG REPLACEMENT MC SCH ×2 (08:00→20:00)
[2020-05-30] MEDS: heparin, porcine 5000 units/ml vial SQ SCH ×2 (08:00→20:00)
[2020-05-30] MEDS: cefpodoxime proxetil 100mg tablet PO SCH (08:30)
[2020-05-30] MEDS: aspirin 81mg tablet.DR PO SCH (08:45)
[2020-05-30 11:00] VITALS: BP 111/66
--- NOTE | 2020-05-30 18:06 | NUR ---
Problems reprioritized. Patient report given, questions answered & plan of care reviewed with ALICIA VEGA.
[2020-05-30 19:00] VITALS: BP 121/58
[2020-05-31] VITALS: BP 111/53
[2020-05-31] MEDS: ciprofloxacin 0.3% 2.5ml ophthalmic solution RIGHTEYE SCH ×6 (00:05→19:37)
--- NOTE | 2020-05-31 06:28 | NUR ---
Patient in room [facility]. I have received report from Jose Cordero and had the opportunity to ask questions and assume patient care.
--- NOTE | 2020-05-31 06:46 | NUR ---
Problems reprioritized. Patient report given, questions answered & plan of care reviewed with CLINTON. Addendum: 05/31/20 at 0646 by Ranjith Galloway RN Amended: Links added.
[2020-05-31 07:17] VITALS: BP 127/54
[2020-05-31] MEDS: K and/or MAG REPLACEMENT MC SCH ×2 (08:00→19:35)
[2020-05-31] MEDS: heparin, porcine 5000 units/ml vial SQ SCH ×2 (08:00→19:35)
[2020-05-31] MEDS: aspirin 81mg tablet.DR PO SCH (08:42)
[2020-05-31 11:00] VITALS: BP 115/58
[2020-05-31 18:00] VITALS: BP 114/52
--- NOTE | 2020-05-31 18:22 | NUR ---
Problems reprioritized. Patient report given, questions answered & plan of care reviewed with ALICIA Flores.
[2020-06-01] VITALS: BP 134/69
[2020-06-01] MEDS: ciprofloxacin 0.3% 2.5ml ophthalmic solution RIGHTEYE SCH ×6 (04:00→20:00)
--- NOTE | 2020-06-01 06:32 | NUR ---
Report given to Mariama VARGAS.
--- NOTE | 2020-06-01 06:50 | NUR ---
Patient in room [facility]. I have received report from ALICIA Flores, and had the opportunity to ask questions and assume patient care.
[2020-06-01 08:00] VITALS: BP 134/58
[2020-06-01] MEDS: heparin, porcine 5000 units/ml vial SQ SCH ×2 (08:00→20:00)
[2020-06-01] MEDS: K and/or MAG REPLACEMENT MC SCH ×2 (08:00→20:00)
[2020-06-01] MEDS: aspirin 81mg tablet.DR PO SCH (09:04)
[2020-06-01 16:31] VITALS: BP 139/62
--- NOTE | 2020-06-01 18:20 | NUR ---
Patient report given, questions answered & plan of care reviewed with ALICIA Lima.
--- NOTE | 2020-06-01 18:30 | NUR ---
Patient in room [facility]. I have received report from TAYLOR VARGAS and had the opportunity to ask questions and assume patient care.
[2020-06-01 20:00] VITALS: BP 127/56
[2020-06-02] VITALS: BP 115/50
[2020-06-02] MEDS: ciprofloxacin 0.3% 2.5ml ophthalmic solution RIGHTEYE SCH ×3 (04:00→08:00)
--- NOTE | 2020-06-02 06:32 | NUR ---
Problems reprioritized. Patient report given, questions answered & plan of care reviewed with REY VARGAS.
--- NOTE | 2020-06-02 06:44 | NUR ---
Patient in room [facility]. I have received report from ALICIA Lima and had the opportunity to ask questions and assume patient care.
[2020-06-02 07:00] VITALS: BP 116/58
[2020-06-02] MEDS: aspirin 81mg tablet.DR PO SCH (07:52)
[2020-06-02] MEDS: heparin, porcine 5000 units/ml vial SQ SCH (08:00)
[2020-06-02] MEDS ORDERED: ASPI-1071 PO (10:09)
[2020-06-02] MEDS ORDERED: HYDR-3965 PO (10:09)
--- NOTE | 2020-06-02 14:10 | NUR ---
Pt discharged home in stable condition. discharge and medication instructions given to pt. 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
== END 2020-06-02 13:40 | disposition home health service (06) | DRG 563 ==
LOC: ER 12:26 → ED HOLD 19:20 → SUR 3N 21:18
PROVIDERS: ADMIT Internal Medicine; ATTEND Internal Medicine
PROC: 2W3TX1Z Immobilization of Left Foot using Splint (ICD-10-PCS; principal; 2020-05-16)
DX: S92.002A Unspecified fracture of left calcaneus, initial encounter for closed fracture (principal); D61.818 Other pancytopenia; N39.0 Urinary tract infection, site not specified; R47.01 Aphasia; G93.89 Other specified disorders of brain; J44.9 Chronic obstructive pulmonary disease, unspecified; V89.2XXA Person injured in unspecified motor-vehicle accident, traffic, initial encounter; Y93.89 Activity, other specified; Y92.89 Other specified places as the place of occurrence of the external cause; Y99.8 Other external cause status; Z86.73 Personal history of transient ischemic attack (TIA), and cerebral infarction without residual deficits
CPT/HCPCS: 36415; 70450; 71045; 71250; 71260; 72125; 73630; 73700; 74176; 74177; 80053; 80061; 81001; 82607; 83036; 83735; 84100; 84443; 85007; 85025; 86592; 87081; 87088; 97110; 97112; 97116; 97161; 97530; 99285; G0378; Q9967

== ENCOUNTER 2022-12-18 09:32 | Emergency (ER) | payer MEDICARE, MEDICAID ==
[~2022-12-18] VITALS: Ht 162.6 cm; Wt 45.5 kg
[~2022-12-18 09:32] MED LIST: ALBU8.5H17 IH; ASPI-1475 PO; DEC1T PO; HYDR-3964 PO; RIVA10TA PO
[2022-12-18 09:55] VITALS: BP 121/56; PULSE 71; RESP 16; O2SAT 96
[2022-12-18] MEDS ORDERED: heparin 10,000 units/1 ML INJ IV ONE (10:35)
[2022-12-18] MEDS ORDERED: heparin 10,000 units/1 ML INJ IV PRN (10:35)
[2022-12-18] MEDS ORDERED: heparin 25,000 UNIT/250ml bag 250 ML IV PRN (10:35)
[2022-12-18] MEDS ORDERED: tranexamic acid inj. 1,000 MG in normal saline 100ml IV soln 90 ML IV ONE (10:40)
[2022-12-18] MEDS ORDERED: TETanus/Pertussis (Acell)/Diphther VAC/PF (Tdap-Adult) 0.5ml syringe IMVAC ONE (10:40)
--- NOTE | 2022-12-18 10:47 | NUR ---
report given to Renetta VARGAS
--- NOTE | 2022-12-18 10:50 | NUR ---
RECIEVED REPORT FROM VICENTE RN ASSUMING CARE OF PT. UA SPECIMEN COLLECTED VIA STRAIGHT CATH. PT TOLERATED PROCEDURE WELL. PCXR IN PROGRESS
[2022-12-18 11:11] LABS: BASOPHILS % (AUTO) 0.7 % (0-1); EOSINOPHILS # (AUTO) 0.2 X10'3 (0-0.9); EOSINOPHILS % (AUTO) 3.1 % (0-6); HEMATOCRIT 36.9 % (35.0-45.0); HEMOGLOBIN 12.3 g/dl (12.0-16.0); LYMPHOCYTES # (AUTO) 1.6 X10'3 (1.1-4.8); LYMPHOCYTES % (AUTO) 27.3 % (21-51); MEAN CORPUSCULAR HGB CONC 33.3 g/dL (33.0-36.5); MEAN CORPUSCULAR VOLUME 84.2 FL (78-98); MEAN PLATELET VOLUME 7.6 FL (7.4-10.4); MONOCYTES # (AUTO) 0.4 X10'3 (0-0.9); MONOCYTES % (AUTO) 6.2 % (2-12); NEUTROPHILS # (AUTO) 3.6 X10'3 (1.8-7.7); NEUTROPHILS % (AUTO) 62.7 % (42-75); PLATELET COUNT 130 X10'3 (140-440); RED BLOOD COUNT 4.39 X10'6 (4.20-5.60); WHITE BLOOD COUNT 5.8 X10'3 (4.5-11.0)
[2022-12-18 11:17] LABS: APTT 30 SECONDS (22-32); INR 1.1 INR; PROTHROMBIN TIME 11.4 SECONDS (9.0-12.0)
[2022-12-18 11:23] LABS: ALANINE AMINOTRANSFERASE 22 U/L (12-78); ALBUMIN 3.8 G/DL (3.4-5.0); ALBUMIN/GLOBULIN RATIO 2.1 (1.1-1.5); ALKALINE PHOSPHATASE 67 IU/L (46-116); ANION GAP 3 (8-16); ASPARTATE AMINO TRANSFERASE 18 U/L (10-37); BILIRUBIN,TOTAL 0.5 MG/DL (0.1-1.0); BLOOD UREA NITROGEN 17 MG/DL (7-18); CALCIUM 8.9 MG/DL (8.5-10.1); CHLORIDE 104 MMOL/L (99-107); CREATININE 0.68 MG/DL (0.40-0.90); GLUCOSE 104 MG/DL (70-104); POTASSIUM 3.9 MMOL/L (3.5-5.1); SODIUM 137 MMOL/L (135-145); TOTAL CARBON DIOXIDE 30.1 MMOL/L (24-32); TOTAL PROTEIN 5.6 G/DL (6.4-8.2); eCRCL 43 ML/MIN; eGFR 82 ML/MIN
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
[2022-12-18 11:31] LABS: MAGNESIUM 2.2 MG/DL (1.5-2.4); PRO BRAIN NATRIURETIC PEPTIDE 321 PG/ML (0-450)
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
[2022-12-18 11:46] LABS: ETHANOL < 10 MG/DL (<10)
[2022-12-18 12:05] LABS: BILIRUBIN,URINE NEGATIVE (Neg); CLARITY,URINE CLOUDY (Clear); COLOR,URINE YELLOW (Yellow); GLUCOSE, URINE NEGATIVE (Neg); KETONES,URINE NEGATIVE (Neg); LEUKOCYTE ESTERASE ,URINE SMALL (Neg); OCCULT BLOOD,URINE NEGATIVE (Neg); PROTEIN,URINE NEGATIVE (Neg); UROBILINOGEN,URINE 0.2 E.U/dL (0.2-1.0)
[2022-12-18 12:16] LABS: NITRITES, URINE POSITIVE (Neg); UA COLLECTION TYPE STRAIGHT CATH
[2022-12-18 12:26] LABS: BACTERIA,URINE 3+ /HPF (Neg); SQUAMOUS EPITHELIAL CELL,UR FEW /LPF (FEW); WBC CLUMPS,URINE MODERATE /HPF (NEGATIVE); WBC,URINE 20-30 /HPF (0-4)
[2022-12-18 12:27] LABS: RBC,URINE 0-2 /HPF (0-2)
[2022-12-18 12:28] LABS: URINE AMPHETAMINE SCREEN NEGATIVE (Neg); URINE BARBITUATE SCREEN NEGATIVE (Neg); URINE BENZODIAZEPINES SCREEN NEGATIVE (Neg); URINE CANNABINOID SCREEN NEGATIVE (Neg); URINE COCAINE SCREEN NEGATIVE (Neg); URINE METHADONE SCREEN NEGATIVE (Neg); URINE OPIATE SCREEN NEGATIVE (Neg); URINE PHENCYCLIDINE SCREEN NEGATIVE (Neg)
== END 2022-12-19 00:56 | disposition hospice, inpatient (51) ==
LOC: ER 09:33
DX: S01.01XA Laceration without foreign body of scalp, initial encounter (principal); W18.39XA Other fall on same level, initial encounter; Y93.89 Activity, other specified; Y92.89 Other specified places as the place of occurrence of the external cause; Y99.8 Other external cause status
CPT/HCPCS: 12001; 36415; 70450; 71045; 72125; 80053; 80305; 80320; 81001; 82948; 83735; 83880; 84100; 84484; 85025; 85610; 85730; 86885; 86900; 86901; 87077; 87088; 93005; 99285; 99291